=== PATIENT | male | born 1990 | race Caucasian/White ===

== ENCOUNTER 2024-06-11 19:51 | Emergency (ER) | payer SELFPAY ==
[2024-06-11 19:52] VITALS: BP 152/82; PULSE 113; RESP 16; TEMP 36.4; O2SAT 98; BMI 37.9
[2024-06-11 19:53] VITALS: BP 152/82; PULSE 116; RESP 16; TEMP 36.3; O2SAT 98
--- NOTE | 2024-06-11 21:20 | EDS_ITS ---
HPI History of Present Illness Chief Complaint: Wound Informant: patient Onset/Context/Timing Onset: Days (5) Context: Gradual Onset Timing: Continuous Quality: Aching Location: Right lower abdomen Worsened by: Movement Relieved by: Nothing Narrative Narrative: Patient presents with redness to the right side of his abdomen that has been getting worse over the past 5 days. Patient describes the pain as aching. Patient states it is worse with certain movements. Patient states he has been using warm compresses with no improvement. Patient denies any drainage. Patient denies any fevers or chills. Patient thinks he may have been bitten by an insect however, he did not see any insects. Patient also states that he has been out of his metoprolol and recently moved to the area. Patient states he has not established with a primary care physician yet. [facility] Medical History (Updated 06/11/24 @ 21:[address] Hansel Hensley DO) Hypertension Home Medications ?Medication ?Instructions ?Recorded ?Last Taken ?Type cephalexin 500 mg capsule 500 mg PO Q6 #40 CAPSULES Unknown Rx metoprolol succinate 25 mg 25 mg PO DAILY #30 tabs 08/02 Unknown Rx tablet,extended release 24 hr Allergy/AdvReac Type Severity Reaction Status Date / Time No Known Allergies Allergy Verified 06/11/24 19:51 Surgical History (Updated 06/11/24 @ 21:[address] Hansel Hensley DO) Hx of tonsillectomy Social History Smoking Status: Never smoker ROS ROS ED Constitutional Constitutional ED: Denies chills or fever(s) Eyes Eyes: Denies blurry vision or change in vision ENT ENT ED: Denies rhinorrhea or sore throat Cardiovascular Cardiovascular: Denies chest pain or palpitations Respiratory/Chest Respiratory/Chest: Denies cough or dyspnea Gastrointestinal Gastrointestinal: Denies nausea or vomiting Genitourinary Genitourinary ED: Denies dysuria or hematuria Musculoskeletal Musculoskeletal: Denies back pain or neck pain Integumentary Reports abscess; Denies rash Neurologic Neurologic: Denies headache(s) or weakness Allergic/Immunologic Allergic/Immunologic ED: Denies mouth swelling or urticaria EXAM Physical Exam Const Vital Signs: 06/11/24 19:52 06/11/24 19:53 Temperature 97.6 F L 97.3 F L Temperature Source Oral Oral Pulse Rate 113 H 116 H Respiratory Rate 16 16 Blood Pressure 152/82 H 152/82 H Blood Pressure Mean 105 105 Pulse Ox 98 98 Positive well nourished and well developed General Appearance ED: well developed and NAD HEENT Reports moist mucous membranes Neck supple and no JVD GI GI Narrative: Abdomen is soft. There is erythema and warmth over the right lower abdomen. There are some induration. There is no fluctuance. There is no discharge or drainage. Palpation: Negative for guarding or rebound tenderness present Neuro oriented x3, CN's II-XII intact bilaterally and no sensory deficits noted Sensorium / Orientation: alert Motor Exam: strength 5/5 throughout Psych mental status grossly normal Skin Skin Narrative: There is edema and erythema of the right lower abdomen. There is induration. There is no fluctuance. There is no discharge or drainage noted. MDM MDM MDM Narrative Medical decision making narrative: Patient was advised of the need for incision and drainage. Patient is agreeable with this. Patient was advised of the risks and benefits. Patient had no further questions. The area was cleaned with chlorhexidine prep. The area was anesthetized with 1% plain lidocaine locally. A small cruciate incision was made using an 11 blade scalpel. A moderate amount of purulent drainage was expressed. The wound was left open. Bacitracin dressing was applied. Patient tolerated the procedure well. Patient was instructed to use warm compresses. Patient was instructed to follow-up with her primary care physician in 5 to 7 days. Patient understood and was agreeable with the plan. All questions were answered. Treatment and Re-Evaluation :: Patient was given a dose of Keflex here. Patient was given prescription for Keflex and metoprolol. Patient was given a referral for primary care physician for follow-up care in 5 to 7 days. Patient was instructed to keep the wound clean and dry. Patient was instructed to return if worse in any way. Patient understood and was agreeable with the plan. All questions were answered. Procedures Other Procedures Procedure(s): The area was cleaned with chlorhexidine prep. The area was anesthetized with 1% plain lidocaine locally. A small cruciate incision was made using an 11 blade scalpel. A moderate amount of purulent drainage was expressed. The wound was left open. Bacitracin dressing was applied. Patient tolerated the procedure well. Discharge Plan Triage Chief Complaint: Wound ED Provider: Hansel Hensley Dx/Rx/DC Orders Clinical Impression: Abdominal wall abscess, Cellulitis of abdominal wall, Hypertension Instructions: ED Abscess Incision And Drainage, ED Hypertension, Established Prescriptions: New cephalexin 500 mg capsule 500 mg PO Q6 Qty: 40 0RF Continued metoprolol succinate 25 mg tablet extended release 24 hr 25 mg PO DAILY Qty: 30 0RF Primary Care Provider: Care Physician,No Primary Referrals: Ata Ramirez MD [Med Staff - Director Of Knowledge Management] - 5-7 Days NOT,DEFINED [Non-Staff] - Print Language: French Disposition Disposition: Home, Self Care
[2024-06-11] MEDS: Lidocaine 1% (20 ml mdv) 20 ML Vial INFILT (21:32)
[2024-06-11] MEDS: Cephalexin 500 MG Capsule PO (21:32)
[2024-06-11 22:56] VITALS: BP 112/84; PULSE 72; RESP 16; TEMP 36.6; O2SAT 99
== END 2024-06-11 22:57 | disposition home or self-care (01) ==
LOC: ED 22:26
PROVIDERS: Emergency Provider Emergency Medicine; Visit Provider Emergency Medicine
DX: L02.211 Cutaneous abscess of abdominal wall (principal); L03.311 Cellulitis of abdominal wall; I10 Essential (primary) hypertension; Z79.899 Other long term (current) drug therapy
CPT/HCPCS: 10060; 99283